=== PATIENT | male | born 1960 | race Caucasian/White ===

== ENCOUNTER 2017-08-09 06:06 | Day surgery (SDC) | payer OTHER ==
[2017-08-09] MEDS: LR 1,000 ML IV (06:50)
[2017-08-09] MEDS: LevoFLOXacin IV 500 MG in APPROPRIATE DILUENT 1 EA IV (06:55)
[2017-08-09] MEDS ORDERED: ONDANSETRON 4MG/2ML VIAL (J2405) As Ordered (07:45)
[2017-08-09] MEDS ORDERED: fentaNYL 100 MCG/2 ML INJECTION (J3010) As Ordered (07:45)
[2017-08-09] MEDS ORDERED: KETAMINE HCL 200 MG/20 ML VIAL As Ordered (07:45)
[2017-08-09] MEDS ORDERED: LIDOCAINE 2% INJ 100 MG/5 ML SDV (FOR ANES.) As Ordered (07:45)
[2017-08-09] MEDS ORDERED: PROPOFOL 200 MG/20 ML VIAL As Ordered ×2 (07:45→07:54)
[2017-08-09] MEDS ORDERED: MIDAZOLAM INJ 2 MG/2 ML VIAL (J2250) As Ordered (07:45)
[2017-08-09] MEDS ORDERED: PERCOCET 5MG/325MG TAB PO ×2 (08:30)
== END 2017-08-09 09:58 | disposition home or self-care (01) ==
LOC: M SDC 06:06
DX: N20.0 Calculus of kidney (principal); I10 Essential (primary) hypertension; G47.30 Sleep apnea, unspecified; E66.9 Obesity, unspecified; R42 Dizziness and giddiness; M54.9 Dorsalgia, unspecified; Z87.81 Personal history of (healed) traumatic fracture; Z88.0 Allergy status to penicillin; Z79.899 Other long term (current) drug therapy; Z79.82 Long term (current) use of aspirin
CPT/HCPCS: 50590

== ENCOUNTER → 2017-08-30 | Outpatient (REF) | payer OTHER | LOC: M SMT 11:29 | DX: N20.0 Calculus of kidney (principal) ==

== ENCOUNTER → 2017-08-30 | Outpatient (CLI) | payer OTHER | LOC: M SMT 08:30 | DX: N20.0 Calculus of kidney (principal) | CPT/HCPCS: 74018 ==

== ENCOUNTER → 2017-09-07 | Outpatient (CLI) | payer OTHER | LOC: M RAD 15:02 | DX: R91.1 Solitary pulmonary nodule (principal) | CPT/HCPCS: 71250 ==

== ENCOUNTER 2019-09-02 05:44 | Day surgery (SDC) | payer OTHER ==
[~2019-09-02] VITALS: Ht 170.2 cm; Wt 99.7 kg
[~2019-09-02 05:44] MED LIST: ASPI81TA26 PO; FLOM0.4C39 PO; LISI-538 PO; MELO15TA28 PO; MULT1TAB10 PO; NAPR500T6 PO; NO ITAB PO; OXYC1TAB23 PO; ZOFR4TAB16 PO
[2019-09-02] MEDS ORDERED: CONRAY-60 60% 50ML VIAL (Q9961) As Ordered ONE (06:51)
[2019-09-02] MEDS ORDERED: CIPROFLOXACIN 400 MG in IV 1 EA IV ONE (07:00)
[2019-09-02] MEDS ORDERED: propofoL 200 MG/20 ML VIAL As Ordered ONE ×2 (07:18→07:20)
[2019-09-02] MEDS ORDERED: MIDAZOLAM INJ 2 MG/2 ML VIAL (J2250) As Ordered ONE (07:18)
[2019-09-02] MEDS ORDERED: LIDOCAINE 2% INJ 100 MG/5 ML SDV (FOR ANES.) As Ordered ONE ×2 (07:18→07:20)
[2019-09-02] MEDS ORDERED: ONDANSETRON 4MG/2ML VIAL (J2405) As Ordered ONE ×2 (07:18→07:20)
[2019-09-02] MEDS ORDERED: fentaNYL 100 MCG/2 ML INJECTION (J3010) As Ordered ONE ×2 (07:18→09:05)
[2019-09-02] MEDS ORDERED: KETOROLAC 60 MG/2 ML VIAL (J1885) As Ordered ONE (07:57)
[2019-09-02] MEDS ORDERED: PERCOCET 5MG/325MG TAB PO PRN (09:30)
[2019-09-02] MEDS ORDERED: LR 1,000 ML IV SCH ×2 (09:30)
[2019-09-02] MEDS ORDERED: fentaNYL 100 MCG/2 ML INJECTION (J3010) IV PRN (09:30)
[2019-09-02] MEDS ORDERED: ONDANSETRON 4MG/2ML VIAL (J2405) IV PRN (09:30)
[2019-09-02] MEDS ORDERED: IBUPROFEN 600 MG TAB PO PRN (09:45)
[2019-09-02] MEDS ORDERED: NORCO, ANEXSIA 5/325MG TABLET (HYDROcodone/ACETAMINOPHEN) PO PRN (11:00)
--- NOTE | 2019-09-02 19:39 | RO ---
DATE OF PROCEDURE: 09/02/2019 PREPROCEDURE DIAGNOSIS: Left renal calculi. POSTPROCEDURE DIAGNOSIS: Left renal calculi. PROCEDURE: Cystoscopy with left retrograde pyelogram, ureteroscopic laser lithotripsy, stone extraction, and stent insertion. SURGEON: Dr. Red Walsh SANDBLASTER SUPERVISOR: None ANESTHESIA: General. INDICATION FOR OPERATION: This is a 59-year-old white male who presented with left renal colic and was found to have a ureteral calculus in the proximal ureter. He was, therefore, scheduled for ureteroscopic laser lithotripsy. DESCRIPTION OF PROCEDURE: The patient was anesthetized with general anesthesia after being placed on the table in the supine position. He was then placed in the lithotomy position, prepped with Betadine paint and draped in an aseptic manner. Time-out was then performed. A 22-Rwandan cystoscope was then inserted into the meatus and advanced under direct vision of a 30-degree lens to the bladder. The urethral channel was normal. The bladder mucosa was also normal, and the ureteral orifices were in a normal anatomic position. The left ureteral orifice was catheterized with a 5-Rwandan Pollack catheter and retrograde injection of Conray showed the patient had a possible left proximal ureteral filling defect. Two wire guides were then left in place up to the renal pelvis, and the cystoscope was removed. A tunnel dilator access sheath was then advanced over the working wire, and this was followed by the flexible ureteroscope. The scope was then advanced up to a stone in the proximal ureter, which was treated with laser lithotripsy and was flushed back into the kidney. The scope was then advanced up to the renal pelvis and several stones were identified, some in the upper pole and some in the lower pole. These were then treated with the laser fiber and broken into small pieces. Some of the larger fragments were removed. When all of the fragments remaining were too small to retrieve, the scope was removed leaving the safety wire in place. The scope was removed with a tunneled dilator under direct vision and no other stones were encountered. Cystoscope was then advanced over the safety wire, and a 5-Rwandan double J stent was advanced over this and curled in the renal pelvis and in the bladder when the wire was removed. The bladder was drained, scope was removed and the patient was awakened and sent to the recovery room in stable condition, having tolerated the procedure well. A rectal examination was performed before awakening the patient, and the prostate was 20 grams and benign in size. MTDD
--- NOTE | 2019-09-04 01:02 | ECGEPIP ---
[facility] Test Date: 2019-09-02 Pat Name: SLADE FAUSTIN Department: Room: - Gender: Male Vice President Underwriting: TAIWO : 1960 Requested By: JODY Aguirre Order Number: [id number] Reading MD: Jerad Lee Measurements Intervals [place] Rate: 70 P: 2 ME: 179 QRS: 24 QRSD: 93 T: 21 QT: 419 QTc: 455 Interpretive Statements SINUS RHYTHM NO PRIOR Electronically Signed on 09-04-2019 1:02:06 EST by Jerad Lee
== END 2019-09-02 10:58 | disposition home or self-care (01) ==
LOC: M SDC 05:44
PROVIDERS: ATTEND Urology
DX: N20.0 Calculus of kidney (principal); I10 Essential (primary) hypertension; G47.33 Obstructive sleep apnea (adult) (pediatric); Z79.899 Other long term (current) drug therapy; Z88.0 Allergy status to penicillin
CPT/HCPCS: 52356; 74420; 82360; 88300; 93005; C1769; C1894; C2617; J0744; J1885; J2250; J2405; J3010; Q9961

== ENCOUNTER → 2020-07-20 | Outpatient (CLI) | payer OTHER ==
--- NOTE | 2020-07-20 15:38 | REP ---
INDICATION: URIC ACID UROLITHIESIS. COMPARISON: 08/30/2017. TECHNIQUE: Single AP view abdomen and pelvis performed. FINDINGS: Bowel gas pattern is normal with no bowel dilatation identified. A tiny calcific density overlies the superior right renal shadow. An oval calcific density overlying the lower left renal shadow is unchanged since the prior exam, about 20 x 8 mm. There are 2 adjacent subcentimeter calcifications just superior to that. Prostatic calcifications are noted. There are diffuse degenerative changes of the spine. IMPRESSION: Bilateral calcifications overlie the renal shadows as discussed above. <Electronically signed by Reynaldo Davis > 07/20/20 [id number]
== END ==
LOC: M RAD 14:11
PROVIDERS: ATTEND Urology
DX: N20.9 Urinary calculus, unspecified (principal)
CPT/HCPCS: 74018; G0463

== ENCOUNTER → 2020-08-23 | Outpatient (CLI) | payer OTHER ==
[~2020-08-23] MED LIST changes: -LISI-538 PO; +LISI20TA33 PO; +PROHANCE 279.3MG/ML 15ML VIAL As Ordered ONE; +PROHANCE 279.3MG/ML 5ML VIAL As Ordered ONE
--- NOTE | 2020-08-23 09:48 | REP ---
INDICATION: KIDNEY STONE, COMPLEX RENAL CYST. COMPARISON: CT 04/02/2020. TECHNIQUE: Multiple sequences obtained in the axial coronal planes prior to and following the intravenous administration of 20 cc ProHance. Study is limited due to patient motion. FINDINGS: Visualized liver demonstrates signal characteristics of diffuse fatty infiltration. Visualized spleen, adrenals and pancreas are unremarkable. No adenopathy or free fluid is seen in the visualized abdomen. There are multiple bilateral renal cysts. None of these show enhancement. They appear benign. The largest on the right is exophytic in the upper aspect of the right kidney laterally and measures 5.5 x 3.8 cm. No internal enhancing nodule is seen. By CT there is a tiny calcification in the posterior wall. Multiple other smaller cortical cysts are seen scattered throughout the upper and lower poles of the right kidney, most are slightly greater than 1 cm in diameter. There are multiple similar sized cysts throughout the left kidney which do not enhance. The largest in the lower pole measures 2 cm in maximum diameter. Largest in the upper pole is anteriorly located and measures 1.8 cm in maximum diameter. In the posterior left upper pole there is a hemorrhagic or proteinaceous cyst demonstrating a fluid-fluid level measuring approximately 1.5 cm in diameter. This does not significantly enhance. No suspicious enhancing renal mass is seen. There is mild right hydronephrosis, of uncertain significance. IMPRESSION: Multiple bilateral cysts which demonstrate benign characteristics as discussed in detail above. Mild right hydronephrosis of uncertain significance. Clinical correlation necessary. <Electronically signed by Reynaldo Davis > 08/23/20 0912
== END ==
LOC: M RAD 08:13
PROVIDERS: ATTEND Specialist
DX: N13.30 Unspecified hydronephrosis (principal); N20.0 Calculus of kidney; N28.1 Cyst of kidney, acquired
CPT/HCPCS: 74183; A9576

== ENCOUNTER → 2020-09-05 | Outpatient (REF) | payer OTHER ==
[~2020-09-05] MED LIST changes: +LISI-538 PO; -LISI20TA33 PO; -PROHANCE 279.3MG/ML 15ML VIAL As Ordered ONE; -PROHANCE 279.3MG/ML 5ML VIAL As Ordered ONE
== END ==
LOC: M LAB REF 16:00
PROVIDERS: ATTEND Physician Assistant
DX: Z11.59 Encounter for screening for other viral diseases (principal)

== ENCOUNTER 2020-12-09 07:03 | Day surgery (SDC) | payer OTHER ==
[~2020-12-09] VITALS: Ht 170.2 cm; Wt 101.2 kg
[~2020-12-09 07:03] MED LIST changes: +ALLO10TA PO; -LISI-538 PO; +LISI20TA33 PO; +LR 1,000 ML IV ONE; +POTA4.25 PO
[2020-12-09] MEDS ORDERED: TRIMETHOPRIM/SULFAMETHOXAZOLE 80 MG in D5W 100 ML IV ONE (08:00)
--- NOTE | 2020-12-09 08:09 | REP ---
INDICATION: KIDNEY STONE COMPARISON: 07/20/2020 TECHNIQUE: Supine view of the abdomen and pelvis. FINDINGS: Left intrarenal calculi again noted. Right kidney is incompletely evaluated due to overlying bowel gas. No bowel obstruction. No free air. No organomegaly. Skeletal structures stable IMPRESSION: Left intrarenal calculi. Further evaluation of the urinary tract system is limited. <Electronically signed by Allen Engel > 12/09/20 [id number]
[2020-12-09] MEDS ORDERED: propofoL 200 MG/20 ML VIAL As Ordered ONE ×2 (09:11→10:41)
[2020-12-09] MEDS ORDERED: MIDAZOLAM INJ 2MG/2ML VIAL (J2250 PER 1MG) As Ordered ONE (09:11)
[2020-12-09] MEDS ORDERED: LIDOCAINE 2% 100MG/5ML SDV (FOR ANES.) As Ordered ONE (09:11)
[2020-12-09] MEDS: LIDOCAINE 2% 5ML JELLY UROJET As Ordered ONE ×2 (09:55→09:59)
[2020-12-09] MEDS ORDERED: FLOM0.4C39 PO (10:27)
[2020-12-09] MEDS ORDERED: OXYC1TAB23 PO (10:27)
--- NOTE | 2020-12-09 10:59 | RO ---
OPERATIVE NOTE DATE OF OPERATION: 12/09/2020 PREOPERATIVE DIAGNOSIS: Left kidney stones. POSTOPERATIVE DIAGNOSIS: Left kidney stones. PROCEDURES: Left extracorporal shock wave lithotripsy, cystoscopy, left ureteral stent placement. SURGEON: Crow Farnsworth MD RETIREMENT BENEFITS SPECIALIST: None. ANESTHESIA: MAC. OPERATIVE INDICATIONS: This is a 62-year-old male who was found to have an approximately 2 cm collection of left-sided kidney stone. He is brought to the operating room today for treatment. DESCRIPTION OF PROCEDURE: The patient was brought to the operating room and MAC anesthesia was administered. Prophylactic antibiotics were infused. He was placed in the supine position in preparation for the above listed procedure. The patient was prepped and draped in the usual sterile fashion. At this point, a flexible cystoscope was inserted in the urethral meatus and advanced into the bladder. A guidewire was then advanced up the left collecting system. The cystoscope was removed and a 7 Persian x 22-32 cm J-J ureteral stent was advanced over the wire into the left collecting system. The wire was removed and there were adequate coils of the stent in the left renal pelvis and in the bladder. At this point, the shock wave lithotripsy was performed. Fluoroscopy was utilized to monitor stone position and fragmentation throughout the procedure. Shock waves were delivered to the left-sided kidney stones ungated. There were no arrhythmias. The stones did appear to fragment pretty well. After 2500 shocks, the procedure was concluded. The patient was then awakened from anesthesia and transported to the recovery room in stable condition. ESTIMATED BLOOD LOSS: 0 mL. COMPLICATIONS: None. SPECIMEN: None. PLAN: The patient will follow-up in the urology clinic in three to four weeks with imaging prior to assess for residual stone burden. Assuming that most of the stone fragments have cleared out, the stent will be removed.
[2020-12-09 11:30] VITALS: BP 145/85
== END 2020-12-09 11:33 | disposition home or self-care (01) ==
LOC: M SDC 07:03
PROVIDERS: ATTEND Urology
DX: N20.0 Calculus of kidney (principal); I10 Essential (primary) hypertension; M47.812 Spondylosis without myelopathy or radiculopathy, cervical region; Z87.81 Personal history of (healed) traumatic fracture; R42 Dizziness and giddiness; R06.83 Snoring; G47.30 Sleep apnea, unspecified; Z88.0 Allergy status to penicillin; Z79.899 Other long term (current) drug therapy
CPT/HCPCS: 50590; 52332; 74018; C1769; C2617; J2250

== ENCOUNTER → 2021-01-10 | Outpatient (CLI) | payer OTHER ==
[~2021-01-10] MED LIST changes: -LR 1,000 ML IV ONE
--- NOTE | 2021-01-10 10:38 | REP ---
INDICATION: CALCULUS OF KIDNEY COMPARISON: 12/09/2020 TECHNIQUE: Supine view of the abdomen and pelvis. FINDINGS: Left ureteral stent in satisfactory position. Few left intrarenal calculi are again identified and similar to prior examination. Right kidney is grossly unremarkable. Bowel gas pattern is nonspecific and within normal limits. No organomegaly. Skeletal structures intact. IMPRESSION: Left ureteral stent in satisfactory position. Few left nephroliths again identified. <Electronically signed by Allen Engel > 01/10/21 1032
== END ==
LOC: M RAD 10:17
PROVIDERS: ATTEND Urology
DX: N20.0 Calculus of kidney (principal)

== ENCOUNTER → 2021-07-12 | Outpatient (REF) | payer OTHER ==
[2021-07-12 17:55] LABS: APPEARANCE, URINE HAZY (CLEAR); BACTERIA, URINE AUTO NEGATIVE (NEGATIVE); BILIRUBIN, URINE AUTO NEGATIVE (NEGATIVE); BLOOD, URINE BLOOD 1+ (NEGATIVE); CALCIUM OXALATE CRYSTALS SMALL; COLOR, URINE YELLOW (YELLOW); GLUCOSE, URINE (UA) AUTO NEGATIVE (NEGATIVE); KETONE, URINE AUTO NEGATIVE (NEGATIVE); LEUKOCYTE ESTERASE, URINE AUTO NEGATIVE (NEGATIVE); MUCUS, URINE SMALL (NEGATIVE); NITRITE, URINE AUTO NEGATIVE (NEGATIVE); PROTEIN, URINE AUTO 1+ mg/dL (NEGATIVE); RBC, URINE AUTO 2 /HPF (0-3); SPECIFIC GRAVITY URINE AUTO 1.026 (1.002-1.035); SQUAMOUS EPITHELIAL CELL UR AU 0 /HPF (0-6); UROBILINOGEN, URINE AUTO 0.2 mg/dL (0.0-2.0); WBC, URINE AUTO 2 /HPF (0-3)
== END ==
LOC: M SMT 17:10
PROVIDERS: ATTEND Nurse Practitioner Women's Health
DX: N20.0 Calculus of kidney (principal)

== ENCOUNTER → 2022-10-17 | Outpatient (REF) | payer OTHER | LOC: M SMT 12:52 | PROVIDERS: ATTEND Physician Assistant | DX: N20.1 Calculus of ureter (principal) ==

== ENCOUNTER 2022-11-09 06:39 | Day surgery (SDC) | payer OTHER ==
[~2022-11-09] VITALS: Ht 170.2 cm; Wt 103.0 kg
[2022-11-09] MEDS ORDERED: LR 1,000 ML IV SCH (07:30)
[2022-11-09] MEDS ORDERED: ceFAZolin SOD 2 GM in IV 1 EA IV ONE (07:45)
[2022-11-09] MEDS ORDERED: MIDAZOLAM INJ 2MG/2ML VIAL As Ordered ONE (08:22)
[2022-11-09] MEDS ORDERED: fentaNYL 100 MCG/2 ML INJECTION As Ordered ONE (08:22)
[2022-11-09] MEDS ORDERED: propofoL 200 MG/20 ML VIAL As Ordered ONE (08:22)
[2022-11-09] MEDS ORDERED: ONDANSETRON 4MG 2ML VIAL As Ordered ONE (08:22)
[2022-11-09] MEDS ORDERED: ACETAMINOPHEN 1000MG 100ML IV BAG As Ordered ONE (08:23)
[2022-11-09] MEDS ORDERED: OXYC1TAB23 PO (08:46)
[2022-11-09] MEDS ORDERED: FLOM0.4C39 PO (08:46)
[2022-11-09 09:22] VITALS: BP 152/82
== END 2022-11-09 09:34 | disposition home or self-care (01) ==
LOC: M SDC 06:39
PROVIDERS: ATTEND Urology
DX: N20.0 Calculus of kidney (principal); I10 Essential (primary) hypertension; E78.5 Hyperlipidemia, unspecified; G47.33 Obstructive sleep apnea (adult) (pediatric); Z79.899 Other long term (current) drug therapy; Z88.0 Allergy status to penicillin
CPT/HCPCS: 50590; 74018; J0131; J0690; J1100; J2250; J2405; J3010

== ENCOUNTER → 2022-11-09 | Outpatient (CLI) | payer OTHER ==
[~2022-11-09] MED LIST changes: +ALLO300T2 PO; +AMLO1TAB24 PO; +ATOR1TAB21 PO; +MULTTAB61 PO; +OMEP20TA18 PO
== END ==
LOC: M RAD 06:39
PROVIDERS: ATTEND Urology
DX: N20.0 Calculus of kidney (principal)

== ENCOUNTER → 2024-05-16 | Outpatient (REF) | payer OTHER ==
[~2024-05-16] MED LIST changes: +NAPR-1405 PO; -NAPR500T6 PO
== END ==
LOC: M SMT 12:36
PROVIDERS: ATTEND Physician Assistant
DX: N20.0 Calculus of kidney (principal)

== ENCOUNTER 2024-06-05 08:09 | Day surgery (SDC) | payer OTHER ==
[~2024-06-05] VITALS: Ht 170.2 cm; Wt 96.2 kg
[~2024-06-05 08:09] MED LIST changes: +HYDR-3490 PO; +METF500T13 PO; +TRUL10IN SC
[2024-06-05] MEDS ORDERED: LR 1,000 ML IV SCH (09:10)
[2024-06-05] MEDS ORDERED: dexmedeTOMIDine (4MCG/ML)200MCG/50ML BTL (PRECEDEX) As Ordered ONE (09:41)
[2024-06-05] MEDS ORDERED: LIDOCAINE 2% 100MG/5ML SDV (FOR ANES.) As Ordered ONE (09:42)
[2024-06-05] MEDS ORDERED: propofoL 500 MG/50 ML VIAL As Ordered ONE (09:45)
[2024-06-05] MEDS: ceFAZolin SOD 2 GM in IV 1 EA IV ONE (10:16)
[2024-06-05] MEDS ORDERED: fentaNYL 100 MCG/2 ML INJECTION As Ordered ONE (10:36)
[2024-06-05] MEDS ORDERED: ONDANSETRON 4MG 2ML VIAL As Ordered ONE (10:38)
[2024-06-05 11:05] VITALS: BP 145/76; TEMP 98.2; O2SAT 95
== END 2024-06-05 11:40 | disposition home or self-care (01) ==
LOC: M SDC 08:09
PROVIDERS: ATTEND Urology
DX: N20.0 Calculus of kidney (principal); E11.9 Type 2 diabetes mellitus without complications; I10 Essential (primary) hypertension; E78.00 Pure hypercholesterolemia, unspecified; G47.30 Sleep apnea, unspecified; K21.9 Gastro-esophageal reflux disease without esophagitis; Z79.899 Other long term (current) drug therapy; Z79.84 Long term (current) use of oral hypoglycemic drugs; Z79.85 Long-term (current) use of injectable non-insulin antidiabetic drugs; Z79.1 Long term (current) use of non-steroidal anti-inflammatories (NSAID); Z88.0 Allergy status to penicillin
CPT/HCPCS: 50590; 74018; J0690; J2405; J3010

== ENCOUNTER → 2024-06-26 | Outpatient (REF) | payer OTHER | LOC: M SMT 10:11 | PROVIDERS: ATTEND Physician Assistant | DX: N20.0 Calculus of kidney (principal) ==